=== PATIENT | male | born 1955 | race Caucasian/White ===

== ENCOUNTER 2017-08-13 08:44 | Emergency (ER) | payer MEDICARE | END 2017-08-13 11:10 | disposition home or self-care (01) | LOC: E/R 08:44 | DX: L97.919 Non-pressure chronic ulcer of unspecified part of right lower leg with unspecified severity (principal); J44.9 Chronic obstructive pulmonary disease, unspecified; E11.9 Type 2 diabetes mellitus without complications; Z96.651 Presence of right artificial knee joint; Z79.4 Long term (current) use of insulin | CPT/HCPCS: 99282 ==